=== PATIENT | male | born 1940 | race Caucasian/White ===

== ENCOUNTER 2023-11-24 14:51 | Outpatient (RCR) | payer MEDICARE, SELFPAY | END 2023-11-24 23:59 | disposition home or self-care (01) | LOC: RPT 14:51 | PROVIDERS: ATTENDING PHYSICIAN Family Medicine | DX: M48.00 Spinal stenosis, site unspecified (principal); Z73.6 Limitation of activities due to disability | CPT/HCPCS: 97010; 97110; 97112; 97163 ==

== ENCOUNTER → 2023-12-14 14:00 | Outpatient (REF) | payer MEDICARE, SELFPAY | LOC: HWRAD 14:00 | PROVIDERS: ATTENDING PHYSICIAN Internal Medicine Critical Care Medicine; FAMILY PHYSICIAN Family Medicine | DX: R91.8 Other nonspecific abnormal finding of lung field (principal) | CPT/HCPCS: 71250 ==

== ENCOUNTER 2023-12-21 13:11 | Outpatient (RCR) | payer MEDICARE, SELFPAY | END 2023-12-21 23:59 | disposition home or self-care (01) | LOC: RPT 13:11 | PROVIDERS: ATTENDING PHYSICIAN Family Medicine | DX: M48.00 Spinal stenosis, site unspecified (principal); Z73.6 Limitation of activities due to disability | CPT/HCPCS: 97010; 97110; 97140 ==

== ENCOUNTER 2023-12-26 13:08 | Outpatient (RCR) | payer MEDICARE, SELFPAY | END 2023-12-26 23:59 | disposition home or self-care (01) | LOC: RPT 13:08 | PROVIDERS: ATTENDING PHYSICIAN Family Medicine | DX: M48.00 Spinal stenosis, site unspecified (principal); Z73.6 Limitation of activities due to disability | CPT/HCPCS: 97010; 97110; 97140 ==

== ENCOUNTER → 2024-12-19 11:15 | Outpatient (REF) | payer MEDICARE, SELFPAY ==
[2024-12-19 12:14] LABS: ALT (SGPT) < 10 U/L (0-50); AST (SGOT) 23 U/L (17-59); Albumin 4.5 g/dl (3.5-5.0); Alkaline Phosphatase 69 U/L (38-126); Blood Urea Nitrogen 36 mg/dl (9-20); Calcium 9.7 mg/dl (8.4-10.2); Carbon Dioxide 29 mmol/L (22-30); Chloride 108 mmol/L (98-107); Glucose 102 mg/dl (70-99); HDL Cholesterol 67 mg/dl; LDL Cholesterol, Calculated 40 mg/dl; Potassium 4.5 mmol/L (3.5-5.1); Sodium 143 mmol/L (135-145); Total Bilirubin 0.5 mg/dl (0.2-1.3); Total Cholesterol 121 mg/dl (50-199); Total Protein 6.8 g/dl (6.3-8.2); Triglyceride 73 mg/dl (10-149); Very Low Density Lipoprotein 14 mg/dl (0-30); eGFR > 60.00
[2024-12-19 12:44] LABS: TSH Reflex To Free T4 2.62 uIU/ml (0.47-4.68)
== END ==
LOC: REG 11:15
PROVIDERS: ATTENDING PHYSICIAN Family Medicine
DX: I12.9 Hypertensive chronic kidney disease with stage 1 through stage 4 chronic kidney disease, or unspecified chronic kidney disease (principal); N18.31 Chronic kidney disease, stage 3a; E03.9 Hypothyroidism, unspecified; K21.9 Gastro-esophageal reflux disease without esophagitis; N40.1 Benign prostatic hyperplasia with lower urinary tract symptoms
CPT/HCPCS: 36415; 80053; 80061; 84443

== ENCOUNTER → 2025-03-28 08:36 | Outpatient (REF) | payer MEDICARE, SELFPAY ==
[2025-03-28 11:05] LABS: ALT (SGPT) < 10 U/L (0-50); AST (SGOT) 26 U/L (17-59); Albumin 4.1 g/dl (3.5-5.0); Alkaline Phosphatase 76 U/L (38-126); Blood Urea Nitrogen 35 mg/dl (9-20); Calcium 9.4 mg/dl (8.4-10.2); Carbon Dioxide 24 mmol/L (22-30); Chloride 107 mmol/L (98-107); Glucose 94 mg/dl (70-99); HDL Cholesterol 52 mg/dl; LDL Cholesterol, Calculated 48 mg/dl; Potassium 4.4 mmol/L (3.5-5.1); Sodium 140 mmol/L (135-145); Total Protein 6.7 g/dl (6.3-8.2); Very Low Density Lipoprotein 17 mg/dl (0-30); eGFR > 60.00
== END ==
LOC: REG 08:36
PROVIDERS: ATTENDING PHYSICIAN Family Medicine
DX: I12.9 Hypertensive chronic kidney disease with stage 1 through stage 4 chronic kidney disease, or unspecified chronic kidney disease (principal); N18.31 Chronic kidney disease, stage 3a; E03.9 Hypothyroidism, unspecified; K21.9 Gastro-esophageal reflux disease without esophagitis; N40.1 Benign prostatic hyperplasia with lower urinary tract symptoms
CPT/HCPCS: 36415; 80053; 80061; 84443

== ENCOUNTER 2025-04-25 08:01 | Outpatient (RCR) | payer MEDICARE, SELFPAY | END 2025-04-25 23:59 | disposition home or self-care (01) | LOC: RPT 08:01 | PROVIDERS: ATTENDING PHYSICIAN Physical Medicine & Rehabilitation; FAMILY PHYSICIAN Family Medicine | DX: M48.00 Spinal stenosis, site unspecified (principal); Z73.6 Limitation of activities due to disability | CPT/HCPCS: 97162; 97530 ==

== ENCOUNTER 2025-05-22 13:58 | Outpatient (RCR) | payer MEDICARE, SELFPAY | END 2025-05-22 23:59 | disposition home or self-care (01) | LOC: RPT 13:58 | PROVIDERS: ATTENDING PHYSICIAN Physical Medicine & Rehabilitation; FAMILY PHYSICIAN Family Medicine | DX: M48.00 Spinal stenosis, site unspecified (principal); Z73.6 Limitation of activities due to disability | CPT/HCPCS: 97110; 97112 ==

== ENCOUNTER 2025-05-29 14:06 | Outpatient (RCR) | payer MEDICARE, SELFPAY | END 2025-05-29 23:59 | disposition home or self-care (01) | LOC: RPT 14:06 | PROVIDERS: ATTENDING PHYSICIAN Physical Medicine & Rehabilitation; FAMILY PHYSICIAN Family Medicine | DX: M48.00 Spinal stenosis, site unspecified (principal); Z73.6 Limitation of activities due to disability | CPT/HCPCS: 97110; 97112 ==

== ENCOUNTER 2025-07-17 08:28 | Outpatient (RCR) | payer MEDICARE, SELFPAY | END 2025-07-17 23:59 | disposition home or self-care (01) | LOC: RPT 08:28 | PROVIDERS: ATTENDING PHYSICIAN Physical Medicine & Rehabilitation; FAMILY PHYSICIAN Family Medicine | DX: M54.51 Vertebrogenic low back pain (principal); Z73.6 Limitation of activities due to disability; M62.81 Muscle weakness (generalized); M25.512 Pain in left shoulder; M25.511 Pain in right shoulder | CPT/HCPCS: 97110; 97112; 97162; 97530 ==

== ENCOUNTER 2025-08-31 16:06 | Emergency (ER) | payer MEDICARE, SELFPAY ==
[2025-08-31 16:09] VITALS: BP 166/88
--- NOTE | 2025-08-31 18:19 | ED.GENMED ---
History of Present Illness
General
Chief Complaint: Eye Problems
Source: patient
Time Seen by Provider: 08/31/25 17:17
History of Present Illness
History of Present Illness:
Note:
CHIEF COMPLAINT(S)
Red eye with swelling and subconjunctival hemorrhage.
HISTORY OF PRESENT ILLNESS
The patient is an 84-year-old male presenting with redness and swelling of the right eye. The patient reports that the condition began on when he noticed a small amount of bleeding in the corner of his eye, which progressively worsened
before suddenly appearing more severe. The patient denies any recent trauma, use of blood thinners, or relevant past incidents leading to the hemorrhage. He describes the sensation of having an eyelash in the eye earlier today, but no significant
pain was associated, only slight discomfort drawing his attention. He also denies experiencing headaches, vision problems, or nausea at this time.
PHYSICAL EXAM
General: Alert, no acute distress.
Eye: Presence of significant subconjunctival hemorrhage predominantly on the nasal aspect of the sclera, extending toward the temporal region. The cornea is intact, the pupil is equal, round, and reactive to light. The anterior chamber is clear. No
tearing or proptosis is noted. Eyelids are normal.
no resp distress
nl gait
no focal motor deficits
PLAN
- Check the patients eye pressure and ensure the cornea is uninjured.
- Follow-up planned with an eye doctor on the ensuing Tuesday, given that no new symptoms such as pain, headache, nausea, or vision changes occur in the interim.
DIFFERENTIAL DIAGNOSIS
The Differential Diagnosis includes, in no particular order and is not limited to:
1. Subconjunctival hemorrhage
2. Traumatic eye hemorrhage
3. Conjunctivitis
4. Viral conjunctivitis
5. Acute angle-closure glaucoma
6. Scleritis
7. Episcleritis
8. Keratitis
9. Allergic conjunctivitis
10. Orbital cellulitis
CARE-UPDATE
08/31/25 - 18:23
Intraocular pressure measured at 14 mmHg. No corneal uptake noted upon staining. Visual acuity is stable.
Disposition:
SUMMARY OF ENCOUNTER
An 84-year-old male presented with a subconjunctival hemorrhage. The patient denied any recent trauma or use of anticoagulants. Examination revealed a normal cornea, anterior chamber, iris, and pupil. Intraocular pressure was normal. The patient
reported feeling stable, and there were no signs of acute issues, indicating they were suitable for outpatient management. The patient was informed about signs to monitor and advised to follow up with an occupational safety specialist.
PLAN
The patient is advised to monitor for any new symptoms such as pain, vision changes, or additional bleeding. He is scheduled for a follow-up with his occupational safety specialist later in the week.
FOLLOW-UP INSTRUCTIONS
The patient will follow up with an occupational safety specialist this week to re-evaluate the subconjunctival hemorrhage and monitor for any changes.
MEDICAL DECISION MAKING
-Complexity of Data Reviewed: Chronic conditions affecting care include the differential diagnosis list: subconjunctival hemorrhage, traumatic eye hemorrhage, conjunctivitis, viral conjunctivitis, acute angle-closure glaucoma, scleritis,
episcleritis, keratitis, allergic conjunctivitis, and orbital cellulitis.
-Data:
Category 1: No specific lab testing was ordered as the examination did not indicate the necessity.
Category 3: Management and reasons for follow-up and return precautions were discussed with the patients spouse.
-Risk: Consideration of Admission/Observation: Escalation of care including admission/observation was considered given the complexity and risk of the patients presenting complaint, exam findings, and/or their underlying comorbidities. However,
ultimately the patient was determined to be safe for outpatient management with close follow up. Reasoning: Work-up reassuring, does not reveal any acute life/organ-threatening processes, patients symptoms well-controlled upon reevaluation,
reexamination is reassuring, vitals are stable, patient agreeable with discharge, reliable for follow-up.
DIAGNOSIS
1. Subconjunctival hemorrhage (H11.31)
Past History
Past History
ED Past Medical History: CAD, HTN, Hypercholesterolemia and Other (BPH)
ED Past Surgical History: Cholecystectomy and Orthopedic
Social History
Tobacco: Non-smoker
Alcohol: None
Personal:
Living: with family
Employment: Retired
Family History
Family History: Negative Diabetes, Hypertension or CAD
Phy Exam
Physical Exam
Physical Exam:
.
Course
Vital Signs
Initial and Last Documented VS:
Initial Vital Signs
Temp Pulse Resp BP Pulse Ox
98.0 F 63 20 166/88 98
08/31/25 16:09 08/31/25 16:09 08/31/25 16:08/31/25 16:09 08/31/25 16:09
Last Documented Vital Signs
Temp Pulse Resp BP Pulse Ox
98.0 F 63 20 166/88 98
08/31/25 16:09 08/31/25 16:09 08/31/25 16:09 08/31/25 16:09 08/31/25 16:09
*Pulse Oximetry
SaO2: 98
Oxygen Mode of Delivery: Room air
Patient hypoxic: no
*Critical Care Note
Total Time (30-74mins, 75-104mins- exclusive of procedures): Not Applicable
ED Attending Note
-
Portions of this chart may have been created with voice recognition software.� Occasional wrong word or��sound alike� substitutions may have occurred due to the inherent limitations of voice recognition software.
Discharge Plan
Departure
Patient Disposition: Home (Routine Discharge)
Date of Disposition: 08/31/25
Time of Disposition: 18:20
Patient with high blood pressure during this ER visit?: Yes
Discharge Problem:
ALEJANDRO (subconjunctival hemorrhage)
Instructions: Subconjunctival Hemorrhage
Prescriptions:
No Action
aspirin 81 MG tablet,delayed release (DR/EC)
81 mg PO DAILY
tamsulosin 0.4 MG capsule
0.4 mg PO DAILY
fish oil-dha-epa 1 EACH capsule
1 ea PO DAILY
cholecalciferol (vitamin D3) 2,000 UNITS tablet
2,000 units PO DAILY
levothyroxine 112 MCG tablet
112 mcg PO DAILY
multivitamin with folic acid [Tab-A-Kerrie] 1 TABLET tablet
1 tab PO DAILY
acetaminophen 325 MG tablet
650 mg PO Q4HPRN PRN (Reason: mild pain) Qty: 1 0RF
ibuprofen 200 MG tablet
400 mg PO Q6HPRN PRN (Reason: moderate pain) Qty: 1 0RF
esomeprazole magnesium [Nexium] 40 mg Capsule,Delayed Release(Dr/Ec)
40 mg PO DAILY
carbidopa-levodopa 25-100 mg Tablet
1 tab PO TID
ezetimibe-simvastatin [Vytorin 10-40] 10-40 mg Tablet
1 tab PO DAILY
albuterol sulfate [ProAir HFA] 90 mcg/actuation HFA aerosol inhaler
1 puff inhalation Q4HPRN PRN (Reason: shortness of breath) Qty: 8.5 0RF
albuterol sulfate 2.5 mg /3 mL (0.083 %) solution for nebulization
2.5 mg inhalation R Q6 PRN (Reason: SOB/WHEEZING)
guaifenesin 600 mg Tablet Extended Release 12hr
600 mg PO Q12 7 Days Qty: 14 0RF
prednisone 50 mg tablet
50 mg PO DAILY 5 Days Qty: 5 0RF
Spiriva Respimat 2.5 mcg/actuation mist
2 inh inhalation DAILY Qty: 4 0RF
doxycycline hyclate 100 mg capsule
100 mg PO BID 3 Days Qty: 6 0RF
Referrals:
Santosh Garcia MD [Family Provider, Family Practice]
Activity Restrictions/Additional Instructions:
Please Dr. Simon follow-up next 3 to 5 days. Return eye pain, headache, nausea, vision changes or any other concerns.
Interventions
Interventions:
*General Assessment Last Done: 08/31/25 16:09
Discharge Date and Time
Print Language: [id number]
== END 2025-08-31 18:30 | disposition home or self-care (01) ==
LOC: EMR 16:06
PROVIDERS: EMERGENCY PHYSICIAN Emergency Medicine; FAMILY PHYSICIAN Family Medicine
DX: H11.31 Conjunctival hemorrhage, right eye (principal); I25.10 Atherosclerotic heart disease of native coronary artery without angina pectoris; I10 Essential (primary) hypertension; E78.00 Pure hypercholesterolemia, unspecified; N40.0 Benign prostatic hyperplasia without lower urinary tract symptoms; Z79.82 Long term (current) use of aspirin
CPT/HCPCS: 99282